=== PATIENT | male | born 1960 ===

== ENCOUNTER → 2022-04-05 10:28 | Outpatient (CLI) | payer OTHER, SELFPAY ==
--- NOTE | 2022-04-05 | DI.RAD.S_ITS ---
PROCEDURE: FL BARIUM SWALLOW INDICATIONS: Dysphagia, unspecified. The patient has history of lung cancer with chemo radiation. History of prior EGD and ? blown dilation of the esophagus per patient. COMPARISON: None. FINDINGS: Function: There is mild esophageal dysmotility. No elicited gastroesophageal reflux. There is normal transit of a calibrated barium tablet through the esophagus into the stomach. Morphology: There is normal esophageal mucosal morphology. Subtle irregularity of the distal esophagus. There is no high-grade esophageal stricture. No extrinsic mass effects or diverticula. Small sliding hiatal hernia. Limited images of the stomach demonstrate normal appearance. IMPRESSION: 1. There is mild narrowing and irregularity of the distal esophagus. No high-grade soft tissue stricture. No esophageal obstruction. 2. Mild esophageal dysmotility. 3. Small sliding hiatal hernia. Dictated by: Polly Root M.D. on 04/05/2022 at 11:48 Approved by: Polly Root M.D. on 04/05/2022 at 11:52
== END ==
PROVIDERS: PCP Nurse Practitioner Family; Referring Provider Nurse Practitioner Family; Visit Provider Nurse Practitioner Family
DX: C78.00 Secondary malignant neoplasm of unspecified lung (principal); C80.1 Malignant (primary) neoplasm, unspecified; K22.2 Esophageal obstruction; K44.9 Diaphragmatic hernia without obstruction or gangrene; K22.4 Dyskinesia of esophagus; R13.10 Dysphagia, unspecified; K22.9 Disease of esophagus, unspecified; T66.XXXS Radiation sickness, unspecified, sequela
CPT/HCPCS: 74220

== ENCOUNTER → 2023-10-31 17:11 | Outpatient (CLI) | payer OTHER, SELFPAY ==
--- NOTE | 2023-10-31 | DI.MRI.S_ITS ---
PROCEDURE: MR SHOULDER RT WO CON INDICATIONS: Pain in right shoulder TECHNIQUE: Noncontrast oblique coronal T2 fast spin echo with fat saturation, oblique sagittal T1 spin echo and T2 fast spin echo with fat saturation, axial T1 spin echo and T2 fast spin echo with fat saturation through the shoulder. COMPARISON: [facility] [place], [place], XR SHOULDER 2+ VIEWS RIGHT, 10/13/2023, 16:20. FINDINGS: Image quality: Excellent. Rotator cuff: Low to moderate grade articular surface partial-thickness tear involving distal supraspinatus at its insertion on the humeral head is seen extending to musculotendinous junction. Distal infraspinatus tendinosis and low-grade articular surface partial-thickness tear is also seen at its insertion on the humeral head. Low-grade partial-thickness tear involving superior fibers of distal subscapularis is noted. No full-thickness rotator cuff tendon rupture. Sagittal images demonstrate no significant rotator cuff muscle atrophy. Bones and bursae: Moderate acromioclavicular joint osteoarthritic changes are seen with joint space narrowing and downward osteophyte formation depressing the musculotendinous junction of supraspinatus. Moderate glenohumeral joint osteoarthritic changes also seen. No acute fracture or dislocation. Edema and subcortical cystic changes involving posterior lateral humeral head which may indicate a shallow subacute to chronic Hill-Sachs deformity. Small amount of joint effusion and trace amount of subacromial subdeltoid bursal fluid is seen, no loose bodies. Capsule and soft tissues: There is signal abnormality and fraying of superior anterior labrum at 12 to 1 o'clock position concerning for superior anterior labral tear. There is also suggestion of anterior-inferior labral tear at 4 to 6 o'clock position. The long head of the biceps tendon appears thickened with intrasubstance T2 hyperintense signal intra-articularly. The rotator interval appears normal, without fibrosis. The coracohumeral ligament is normal in thickness. IMPRESSION: 1. Subacute to chronic appearing shallow Hill-Sachs deformity involving posterior lateral humeral head. No definite Bankart fracture. Moderate acromioclavicular joint and glenohumeral joint osteoarthritis. Trace amount of subacromial subdeltoid bursal fluid, no loose bodies. 2. Low to moderate grade articular surface partial-thickness tear involving distal supraspinatus extending to musculotendinous junction. Low-grade articular surface partial-thickness tear involving distal infraspinatus. Low-grade partial-thickness tear involving superior fibers of distal subscapularis. No full-thickness rotator cuff tendon rupture. No significant rotator cuff muscle atrophy. 3. Suggestion of superior anterior labral tear at 12 to 1 o'clock position and anterior inferior labral tear at 4 to 6 o'clock position. 4. Low-grade intrasubstance partial-thickness tear involving proximal intra-articular portion of long head of biceps. Dictated by: Estuardo Morris M.D. on 11/01/2023 at 8:20 Approved by: Estuardo Morris M.D. on 11/01/2023 at 8:26
== END ==
PROVIDERS: PCP Nurse Practitioner Family; Referring Provider Orthopaedic Surgery; Visit Provider Orthopaedic Surgery
DX: M75.111 Incomplete rotator cuff tear or rupture of right shoulder, not specified as traumatic (principal); S46.111A Strain of muscle, fascia and tendon of long head of biceps, right arm, initial encounter; M19.011 Primary osteoarthritis, right shoulder; M25.511 Pain in right shoulder
CPT/HCPCS: 73221